=== PATIENT | male | born 1985 | race African-American/Black ===

== ENCOUNTER 2018-06-23 04:13 | Observation (INO) ==
[2018-06-23] MEDS ORDERED: SODIUM CHLORIDE 0.9% 1,000 ML IV STA (06:42)
[2018-06-23] MEDS ORDERED: ONDANSETRON 4 MG/2 ML VIAL IV STA (06:42)
[2018-06-23 06:43] LABS: Calcium 9.4 MG/DL (8.5-10.1); Osmolality,Calculated 276.4 MOS/KG (273-304); Potassium 3.7 MMOL/L (3.5-5.1)
[2018-06-23] MEDS ORDERED: ONDANSETRON 4 MG/2 ML VIAL ONE (06:44)
[2018-06-23 06:47] LABS: Basophils % 0.4 % (0.0-0.8); Eosinophils # 0.1 10*3/uL (0.0-0.87); Eosinophils % 0.5 % (0.00-10.9); Hematocrit 32.7 VOL% (35.7-47.0); Hemoglobin 9.1 GM/DL (12.0-16.0); Immature Granulocytes % 0.4 %; Immature Granulocytes Absolute 0.04 #; Lymphocytes % 21.9 % (21.3-54.2); Mean Corpuscular HGB Conc 27.8 GM/DL (32-36); Mean Corpuscular Hemoglobin 20 PG (27-34); Mean Corpuscular Volume 70.9 FL (87-102); Mean Platelet Volume 8.5 FL (9.6-12.0); Monocytes # 1.2 10*3/uL (0.11-0.8); Monocytes % 13.4 % (1.7-12.7); Neutrophils # 5.8 10*3/uL (1.4-7.4); Neutrophils % 63.4 % (38.7-73.9); Platelet Count 683 T/CUMM (130-400); Red Blood Count 4.61 MC/CUMM (3.8-5.5); Red Cell Distribution Width 20.9 % (9.3-17.3); White Blood Count 9.2 T/CUMM (4-12)
[2018-06-23 07:30] LABS: Apearance,Urine CLEAR (Clear); Bilirubin,Urine Negative (Negative); Blood, Urine Negative (Negative); Glucose,Urine (UA) Negative (Negative); Ketones,Urine Negative (Negative); Mucus,Urine Occasional /LPF (Occasional); Nitrite,Urine Negative (Negative); Protein,Urine 100 MG/DL; RBC,Urine <1 /HPF (0-4); Squamous Epithelial Cell,Urine Occasional /HPF (0-10); Urine Color Yellow (Yellow); Urine Specific Gravity 1.026 (1.001-1.035); WBC,Urine 1 /HPF (0-6)
[2018-06-23 08:41] LABS: Barbiturates Screen,Urine Negative (Negative); Benzodiazepines Screen,Urine Positive (Negative); Cannabinoid Screen,Urine Negative (Negative); Opiate Screen,Urine Negative (Negative); Phencyclidine Screen,Urine Negative (Negative)
[2018-06-23] MEDS ORDERED: PROMETHAZINE 25 MG/1 ML VIAL IM PRN (09:34)
[2018-06-23] MEDS ORDERED: NICOTINE 21 MG/24 HR PATCH TRANSDERM PRN (09:34)
[2018-06-23] MEDS ORDERED: POTASSIUM CHLORIDE RIDER 10 MEQ in PREMIX 1 EACH IV PRN (09:34)
[2018-06-23] MEDS ORDERED: MAGNESIUM SULF RIDER 2 GM in PREMIX 1 EACH IV PRN (09:34)
[2018-06-23] MEDS ORDERED: MAGNESIUM SULF RIDER 4 GM in PREMIX 1 EACH IV PRN (09:34)
[2018-06-23 09:57] LABS: Risk Ratio 3.69
[2018-06-23] MEDS ORDERED: hydrALAZINE 20 MG/1 ML VIAL IV PRN (10:42)
[2018-06-23] MEDS ORDERED: LORazepam 2 MG/1 ML VIAL IV PRN (10:43)
[2018-06-23] MEDS: MORPHINE 4 MG/1 ML VIAL IV PRN ×3 (10:55→21:04)
[2018-06-23 11:55] LABS: HIV Antigen/Antibody Result Nonreactive (Nonreactive); Hepatitis A Ab IgM Quant 0.14 Index; Hepatitis A Ab IgM Result Negative (Negative); Hepatitis B Core IgM Quant 0.07 Index; Hepatitis B Core IgM Result Negative (Negative); Hepatitis B Surface Ag Quant < 0.10 Index; Hepatitis B Surface Ag Result Negative (Negative); Hepatitis C Virus Ab Quant < 0.02 Index; Hepatitis C Virus Ab Result Negative (Negative)
[2018-06-23] MEDS: SODIUM CHLORIDE 0.9% 1,000 ML IV SCH (14:03)
[2018-06-23] MEDS: ONDANSETRON 4 MG/2 ML VIAL IV PRN ×2 (14:20→21:04)
[2018-06-23] MEDS: CIPROFLOXACIN INJ 400 MG in PREMIX 1 EACH IV SCH (14:23)
[2018-06-23] MEDS ORDERED: guaiFENesin 200 MG/10 ML UDCUP PO PRN (16:23)
[2018-06-23] MEDS: metroNIDAZOLE INJ 500 MG in PREMIX 1 EACH IV SCH ×2 (16:46→21:04)
[2018-06-23] MEDS: HEPARIN 5,000 UNIT/1 ML VIAL SUBCUT SCH (16:48)
[2018-06-24] MEDS: HEPARIN 5,000 UNIT/1 ML VIAL SUBCUT SCH ×2 (00:38→09:25)
[2018-06-24] MEDS: SODIUM CHLORIDE 0.9% 1,000 ML IV SCH (00:39)
[2018-06-24] MEDS: MORPHINE 4 MG/1 ML VIAL IV PRN (00:57)
[2018-06-24] MEDS: CIPROFLOXACIN INJ 400 MG in PREMIX 1 EACH IV SCH (00:59)
[2018-06-24] MEDS ORDERED: ACETAMINOPHEN 325 MG TABLET PO PRN (03:24)
[2018-06-24] MEDS: metroNIDAZOLE INJ 500 MG in PREMIX 1 EACH IV SCH ×2 (03:41→09:20)
[2018-06-24 06:11] LABS: Albumin 3.1 G/DL (3.4-5.0); Bilirubin,Total 0.4 MG/DL (0.2-1.0); Calcium 8.2 MG/DL (8.5-10.1); Osmolality,Calculated 273.5 MOS/KG (273-304); Potassium 3.6 MMOL/L (3.5-5.1); Total Protein 6.7 G/DL (6.4-8.3)
[2018-06-24 06:27] LABS: Basophils % 0.6 % (0.0-0.8); Eosinophils # 0.2 10*3/uL (0.0-0.87); Hematocrit 26.9 VOL% (42.0-52.0); Immature Granulocytes % 0.4 %; Immature Granulocytes Absolute 0.02 #; Lymphocytes # 1.6 10*3/uL (1.4-4.0); Lymphocytes % 30.9 % (21.2-54.2); Mean Corpuscular HGB Conc 27.5 GM/DL (32-36); Mean Corpuscular Hemoglobin 20 PG (27-34); Mean Corpuscular Volume 71.7 FL (87-102); Mean Platelet Volume 8.4 FL (9.6-12.0); Monocytes # 0.9 10*3/uL (0.11-0.8); Neutrophils # 2.5 10*3/uL (1.4-7.4); Neutrophils % 47.1 % (38.7-73.9); Platelet Count 463 T/CUMM (130-400); Red Blood Count 3.75 MC/CUMM (3.8-5.5); White Blood Count 5.3 T/CUMM (4-12)
[2018-06-24 06:28] LABS: Hemoglobin 7.4 GM/DL (14.0-18.0)
[2018-06-24 06:36] LABS: Anisocytosis 1+; Band Neutrophils 5 % (0-10); Eosinophils 6 % (0-10); Hypochromasia 1+; Lymphocytes 28 % (20-55); Macrocytosis Slight; Platelet Estimate Normal; Segmented Neutrophils 49 % (50-85); Smudge Cells Few; Total Cells Counted 100
[2018-06-24 08:36] LABS: Hemoglobin 7.7 GM/DL (14.0-18.0)
[2018-06-24] MEDS ORDERED: PANTOPRAZOLE 40 MG VIAL IV SCH (09:00)
[2018-06-24] MEDS ORDERED: METOPROLOL TARTRATE 25 MG TABLET PO SCH (09:00)
[2018-06-24] MEDS ORDERED: IRON SUCROSE 300 MG in SODIUM CHLORIDE 0.9% 100 ML IV ONE (09:05)
[2018-06-24 12:14] VITALS: BP 118/86
== END 2018-06-24 13:35 | disposition home or self-care (01) ==
LOC: N.ED 04:13 → EDSEX 04:13 → N.EDINP 04:13 → N.2W 10:37 → N.5E 13:59
PROVIDERS: ADMIT Internal Medicine; ATTEND Internal Medicine